=== PATIENT | female | born 1995 | race Caucasian/White ===

== ENCOUNTER 2021-04-09 15:37 | Emergency (ER) | payer OTHER ==
--- NOTE | 2021-04-09 16:05 | ERPHSYRPT ---
- History of Present Illness Source: patient Exam Limitations: no limitations Patient Subjective Stated Complaint: pt here for medical clearance to be admitted to [facility] Triage Nursing Assessment: she states she is being admitted for suicidal thoughts with a plane, she has hx of this,pt alert, waked in with stuffed animal, skin w/d/, resp easy, Physician History: 25 yo wf w suicidal ideation sent by [facility] for clearance. Pt has a h/o mental illness and has a bed. She wants to slit her wrists in the shower. Timing/Duration: today Severity of Symptoms-Max: severe Severity of Symptoms-Current: severe Context related to: other (Depression) Suicidal thoughts: specific plan Associated Symptoms: depressed, frustrated Previous symptoms: same symptoms as today Allergies/Adverse Reactions: No Known Drug Allergies Allergy (Verified 04/09/21 15:54) Home Medications: Diazepam [Valium] 2 mg PO TID 04/09/21 [History] Escitalopram Oxalate [Lexapro] 10 mg PO DAILY 04/09/21 [History] Metformin HCl 500 mg [Glucophage 500 MG] 500 mg PO BID 04/09/21 [History] Progesterone, Micronized [Progesterone] 200 mg PO DAILY 04/09/21 [History] Topiramate 50 mg PO DAILY 04/09/21 [History] Ziprasidone 20 mg [Geodon 20 MG Capsule] 20 mg PO DAILY 04/09/21 [History] Ziprasidone HCl [Geodon] 40 mg PO DAILY 04/09/21 [History] Hx Tetanus, Diphtheria Vaccination/Date Given: Yes Hx Influenza Vaccination/Date Given: No Hx Pneumococcal Vaccination/Date Given: No Immunizations Up to Date: Yes Travel Risk - International Travel Have you traveled outside of the country in past 3 weeks: No - Coronavirus Screening Are you exhibiting any of the following symptoms?: No Close contact with a COVID-19 positive Pt in past 14-21 Days: No - Vaccine Status Have you recieved a Covid-19 vaccination: No - Past Medical History Pertinent Past Medical History: No Neurological History: No Pertinent History ENT History: No Pertinent History Cardiac History: No Pertinent History Respiratory History: No Pertinent History Endocrine Medical History: No Pertinent History GI Medical History: No Pertinent History History: No Pertinent History Psycho-Social History: Anxiety, Bipolar, Depression Female Reproductive Disorders: Menstrual Problems Other Medical History: Last year had some upper respiratory infections, have a long history of menstrual problems - Past Surgical History Past Surgical History: No Neuro Surgical History: No Pertinent History Cardiac: No Pertinent History Respiratory: No Pertinent History Gastrointestinal: No Pertinent History Genitourinary: No Pertinent History Musculoskeletal: No Pertinent History Female Surgical History: No Pertinent History - Social History Smoking Status: Current every day smoker How long have you smoked: 1 1/2 Exposure to second hand smoke: Yes Drug Use: none Patient Lives Alone: No Significant Family History: no pertinent family hx - Female History Hx Last Menstrual Period: year ago Hx Now: No - Review of Systems Constitutional: No Symptoms Eyes: No Symptoms Ears, Nose, & Throat: No Symptoms Respiratory: No Symptoms Cardiac: No Symptoms Abdominal/Gastrointestinal: No Symptoms Genitourinary Symptoms: No Symptoms Musculoskeletal: No Symptoms Skin: No Symptoms Neurological: No Symptoms Endocrine: No Symptoms Hematologic/Lymphatic: No Symptoms Immunological/Allergic: No Symptoms - Nursing Vital Signs Nursing Vital Signs: Initial Vital Signs Temperature 97.0 F 04/09/21 15:47 Pulse Rate 97 H 04/09/21 15:47 Respiratory Rate 16 04/09/21 15:47 Blood Pressure 163/99 04/09/21 15:47 O2 Sat by Pulse Oximetry 99 04/09/21 15:47 Pain Scale Pain Intensity 0 - Physical Exam General Appearance: no apparent distress Eyes, Ears, Nose, Throat Exam: normal ENT inspection, TMs normal, pharynx normal Neck Exam: normal inspection, non-tender, supple, full range of motion, No Brudzinski, No Kernig's, No meningismus, No carotid bruit Respiratory Exam: normal breath sounds, lungs clear, airway intact Cardiovascular Exam: regular rate/rhythm, normal heart sounds, normal peripheral pulses, No murmur Gastrointestinal/Abdominal Exam: soft, normal bowel sounds, No tenderness Current Suicidality: has suicide plan Neurological Exam: alert, normal mood/affect, calm, 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, oriented x 3, responds to pain Appearance: appropriate appearance Behavior/Eye Contact/Speech: alert & cooperative Thoughts/Hallucinations: normal thought pattern, no apparent hallucination Skin Exam: normal color, warm, dry, No rash SpO2 Interpretation: normal SpO2: 99 O2 Delivery: Room Air - Course Nursing assessment & vital signs reviewed: Yes Ordered Tests: Active Orders 24 hr Category Date Time Status ACETAMINOPHEN Stat Lab 04/09/21 16:05 Completed CBC W DIFF Stat Lab 04/09/21 16:05 Completed CMP Stat Lab 04/09/21 16:05 Completed CULTURE,URINE Stat Lab 04/09/21 15:53 Received ETHYL ALCOHOL Stat Lab 04/09/21 16:05 Completed HCG QUALITATIVE,SERUM Stat Lab 04/09/21 16:05 Completed SALICYLATE Stat Lab 04/09/21 16:05 Completed UA W/RFX UR CULTURE Stat Lab 04/09/21 15:53 Completed Urine Triage Profile Stat Lab 04/09/21 15:53 Completed Lab/Rad Data: Laboratory Result Diagrams 04/09/21 16:05 04/09/21 16:05 Laboratory Results 04/09/21 04/09/21 04/09/21 Range/Units 16:10 16:05 16:05 WBC (4.0-10.5) K/mm3 RBC (4.1-5.4) M/mm3 Hgb (12.0-16.0) gm/dl Hct (35-47) % MCV (78-100) fl MCH (26-32) pg MCHC (32-36) g/dl RDW (11.5-14.0) % Plt Count (150-450) K/mm3 MPV (7.5-11.0) fl Gran % (36.0-66.0) % Eos # (Auto) (0-0.5) Absolute Lymphs (auto) (1.0-4.6) Absolute Monos (auto) (0.0-1.3) Lymphocytes % (24.0-44.0) % Monocytes % (0.0-12.0) % Eosinophils % (0.00-5.0) % Basophils % (0.0-0.4) % Absolute Granulocytes (1.4-6.9) Basophils # (0-0.4) Sodium 140 (137-145) mmol/L Potassium 3.5 (3.5-5.1) mmol/L Chloride 106 (98-107) mmol/L Carbon Dioxide 22 (22-30) mmol/L Anion Gap 16.3 H (5-15) MEQ/L BUN 12 (7-17) mg/dL Creatinine 0.64 (0.52-1.04) mg/dL Estimated GFR > 60.0 ML/MIN Glucose 109 H (74-106) mg/dL Calcium 9.8 (8.4-10.2) mg/dL Total Bilirubin 0.40 (0.2-1.3) mg/dL AST 31 (14-36) U/L ALT 26 (0-35) U/L Alkaline Phosphatase 100 (38-126) U/L Serum Total Protein 8.2 (6.3-8.2) g/dL Albumin 4.7 (3.5-5.0) g/dL Serum , Qual NEGATIVE (Negative) Urine Color (YELLOW) Urine Appearance (CLEAR) Urine pH (5-6) Ur Specific Monette (1.005-1.025) Urine Protein (Negative) Urine Ketones (NEGATIVE) Urine Blood (0-5) Elder/ul Urine Nitrite (NEGATIVE) Urine Bilirubin (NEGATIVE) Urine Urobilinogen (0-1) mg/dL Ur Leukocyte Esterase (NEGATIVE) Urine WBC (Auto) (0-5) /HPF Urine RBC (Auto) (0-2) /HPF U Epithel Cells (Auto) (FEW) /HPF Urine Bacteria (Auto) (NEGATIVE) /HPF Calcium Oxalate Crystal (NEGATIVE) /HPF Amorphous Crystals (NEGATIVE) /HPF Urine Mucus (Auto) (NEGATIVE) /HPF Urine Culture Reflexed (NO) Urine Glucose (NEGATIVE) mg/dL Salicylates < 1.0 L (2-20) mg/dL Urine Opiates Level (NEGATIVE) Ur Methadone (NEGATIVE) Acetaminophen < 10 L (10-30) ug/ml Urine Barbiturates (NEGATIVE) Ur Phencyclidine (PCP) (NEGATIVE) Urine Amphetamine (NEGATIVE) U Benzodiazepine Level (NEGATIVE) Urine Cocaine (NEGATIVE) Urine Marijuana (THC) (NEGATIVE) Ethyl Alcohol < 10 (0-10) mg/dL SARS-CoV-2 Ag (Rapid) NEGATIVE (NEGATIVE) 04/09/21 04/09/21 04/09/21 Range/Units 16:05 15:53 15:53 WBC 11.0 H (4.0-10.5) K/mm3 RBC 4.82 (4.1-5.4) M/mm3 Hgb 14.4 (12.0-16.0) gm/dl Hct 43.3 (35-47) % MCV 89.8 (78-100) fl MCH 29.9 (26-32) pg MCHC 33.3 (32-36) g/dl RDW 13.8 (11.5-14.0) % Plt Count 454 H (150-450) K/mm3 MPV 9.3 (7.5-11.0) fl Gran % 62.1 (36.0-66.0) % Eos # (Auto) 0.60 H (0-0.5) Absolute Lymphs (auto) 3.09 (1.0-4.6) Absolute Monos (auto) 0.43 (0.0-1.3) Lymphocytes % 28.2 (24.0-44.0) % Monocytes % 3.9 (0.0-12.0) % Eosinophils % 5.5 H (0.00-5.0) % Basophils % 0.3 (0.0-0.4) % Absolute Granulocytes 6.81 (1.4-6.9) Basophils # 0.03 (0-0.4) Sodium (137-145) mmol/L Potassium (3.5-5.1) mmol/L Chloride (98-107) mmol/L Carbon Dioxide (22-30) mmol/L Anion Gap (5-15) MEQ/L BUN (7-17) mg/dL Creatinine (0.52-1.04) mg/dL Estimated GFR ML/MIN Glucose (74-106) mg/dL Calcium (8.4-10.2) mg/dL Total Bilirubin (0.2-1.3) mg/dL AST (14-36) U/L ALT (0-35) U/L Alkaline Phosphatase (38-126) U/L Serum Total Protein (6.3-8.2) g/dL Albumin (3.5-5.0) g/dL Serum , Qual (Negative) Urine Color YELLOW (YELLOW) Urine Appearance CLOUDY (CLEAR) Urine pH 7.0 (5-6) Ur Specific Monette 1.019 (1.005-1.025) Urine Protein NEGATIVE (Negative) Urine Ketones NEGATIVE (NEGATIVE) Urine Blood SMALL (0-5) Elder/ul Urine Nitrite NEGATIVE (NEGATIVE) Urine Bilirubin NEGATIVE (NEGATIVE) Urine Urobilinogen 4 (0-1) mg/dL Ur Leukocyte Esterase SMALL (NEGATIVE) Urine WBC (Auto) 6-10 (0-5) /HPF Urine RBC (Auto) 3-5 (0-2) /HPF U Epithel Cells (Auto) RARE (FEW) /HPF Urine Bacteria (Auto) RARE (NEGATIVE) /HPF Calcium Oxalate Crystal 51-99 (NEGATIVE) /HPF Amorphous Crystals FEW (NEGATIVE) /HPF Urine Mucus (Auto) SLIGHT (NEGATIVE) /HPF Urine Culture Reflexed YES (NO) Urine Glucose NEGATIVE (NEGATIVE) mg/dL Salicylates (2-20) mg/dL Urine Opiates Level NEGATIVE (NEGATIVE) Ur Methadone NEGATIVE (NEGATIVE) Acetaminophen (10-30) ug/ml Urine Barbiturates NEGATIVE (NEGATIVE) Ur Phencyclidine (PCP) NEGATIVE (NEGATIVE) Urine Amphetamine NEGATIVE (NEGATIVE) U Benzodiazepine Level NEGATIVE (NEGATIVE) Urine Cocaine NEGATIVE (NEGATIVE) Urine Marijuana (THC) NEGATIVE (NEGATIVE) Ethyl Alcohol (0-10) mg/dL SARS-CoV-2 Ag (Rapid) (NEGATIVE) - Progress Progress Note: 04/09/21 21:01 Pt sent to by EMS/Stable upon transfer Counseled pt/family regarding: lab results, diagnosis - Departure Departure Disposition: Transfer Clinical Impression: Suicidal ideation, UTI (urinary tract infection) Condition: Stable Critical Care Time: No Referrals: THIAGO FRANCO MD [Primary Care Provider] - Prescriptions: Nitrofurantoin Macro 100 mg [Macrobid 100MG Capsule] 100 mg PO BID #14 capsule
[2021-04-09 16:43] LABS: Absolute Neutrophil Ct (ANC) 6.81 (1.4-6.9); BASOPHIL % 0.3 % (0.0-0.4); Basophil (Absolute #) 0.03 (0-0.4); Eosinophil % 5.5 % (0.00-5.0); Hematocrit 43.3 % (35-47); Hemoglobin 14.4 gm/dl (12.0-16.0); Lymphocyte (Absolute #) 3.09 (1.0-4.6); Lymphocytes % 28.2 % (24.0-44.0); Mean Cell Volume 89.8 fl (78-100); Mean Corpuscular Hemoglobin 29.9 pg (26-32); Mean Corpuscular Hgb Concent. 33.3 g/dl (32-36); Mean Platelet Volume 9.3 fl (7.5-11.0); Monocyte (Absolute #) 0.43 (0.0-1.3); Monocytes % 3.9 % (0.0-12.0); Neutrophil % 62.1 % (36.0-66.0); Platelet Count 454 K/mm3 (150-450); Red Blood Count 4.82 M/mm3 (4.1-5.4); Red Cell Distribution Width 13.8 % (11.5-14.0)
[2021-04-09 16:54] LABS: ACETAMINOPHEN < 10 ug/ml (10-30); ALBUMIN 4.7 g/dL (3.5-5.0); ALKALINE PHOSPHATASE 100 U/L (38-126); ANION GAP 16.3 MEQ/L (5-15); BLOOD UREA NITROGEN 12 mg/dL (7-17); CHLORIDE 106 mmol/L (98-107); Calcium 9.8 mg/dL (8.4-10.2); Carbon Dioxide 22 mmol/L (22-30); Creatinine 1 0.64 mg/dL (0.52-1.04); EST GLOMERULAR FILTRATION RATE > 60.0 ML/MIN; ETHYL ALCOHOL < 10 mg/dL (0-10); Glucose 109 mg/dL (74-106); Potassium 3.5 mmol/L (3.5-5.1); SALICYLATE < 1.0 mg/dL (2-20); SGOT/AST 31 U/L (14-36); SGPT/ALT 26 U/L (0-35); SODIUM 140 mmol/L (137-145); Total Protein 8.2 g/dL (6.3-8.2)
[2021-04-09 16:56] LABS: COVID AG -BINAX NOW RAPID TEST NEGATIVE (NEGATIVE)
[2021-04-09 17:12] LABS: Amourphous Crystal FEW /HPF (NEGATIVE); Appearance CLOUDY (CLEAR); Bacteria RARE /HPF (NEGATIVE); Bilirubin NEGATIVE (NEGATIVE); Blood SMALL Ery/ul (0-5); Epithelial Cells RARE /HPF (FEW); Glucose NEGATIVE (NEGATIVE); Ketones NEGATIVE (NEGATIVE); Leukocyte Esterase SMALL (NEGATIVE); Mucus SLIGHT /HPF (NEGATIVE); Nitrite NEGATIVE (NEGATIVE); Protein,Urine Dip NEGATIVE (Negative); Specific Gravity 1.019 (1.005-1.025); Urobilinogen 4 mg/dL (0-1)
[2021-04-09 17:21] LABS: Amphetamine,Urine NEGATIVE (NEGATIVE); Barbiturate,Urine NEGATIVE (NEGATIVE); Benzodiazepine,Urine NEGATIVE (NEGATIVE); Cocaine,Urine NEGATIVE (NEGATIVE); Methadone,Urine NEGATIVE (NEGATIVE); Opiate,Urine NEGATIVE (NEGATIVE); PCP,Urine NEGATIVE (NEGATIVE); THC,Urine NEGATIVE (NEGATIVE)
[2021-04-09 18:27] VITALS: BP 122/78; PULSE 96
[2021-04-09 21:01] VITALS: O2SAT 99
== END 2021-04-09 18:27 | disposition short-term general hospital (02) ==
LOC: ED 15:37
DX: R45.851 Suicidal ideations (principal); N39.0 Urinary tract infection, site not specified
CPT/HCPCS: 36415; 80053; 80307; 81001; 81025; 85025; 87086; 99000; 99284; G0480